=== PATIENT | female | born 1950 | race Caucasian/White ===

== ENCOUNTER 2016-11-05 16:22 | Emergency (ER) | payer MEDICARE, MEDICAID ==
[2016-11-05 16:37] VITALS: BP 148/74
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
== END 2016-11-05 17:13 | disposition home or self-care (01) ==
LOC: LB.ED 16:22
DX: R68.84 Jaw pain (principal); R20.2 Paresthesia of skin; I10 Essential (primary) hypertension; E28.2 Polycystic ovarian syndrome; F17.210 Nicotine dependence, cigarettes, uncomplicated; Z88.5 Allergy status to narcotic agent; Z79.899 Other long term (current) drug therapy
CPT/HCPCS: 36415; 80053; 84484; 85025; 93005; 99283-25; 99284

== ENCOUNTER 2017-08-10 16:43 | Emergency (ER) | payer MEDICARE, MEDICAID ==
[2017-08-10] MEDS: HYDROmorphone 4 MG/ML Syringe ONE (17:09)
[2017-08-10] MEDS: HYDROmorphone 2 MG/ML Syringe SUBCUT ONE (17:09)
[2017-08-10] MEDS ORDERED: Acetaminophen/HYDROcodone 325-5 MG Tab ONE (17:55)
[2017-08-10 20:58] VITALS: BP 156/83
--- NOTE | 2017-08-11 02:18 | ER ---
DATE OF SERVICE: 08/10/2017 HISTORY OF PRESENT ILLNESS: A 67-year-old lady here with complaints of headache that started yesterday. She states it was severe yesterday. She took a couple of Aleve tablets. She felt at one point like her heart was beating faster than normal. It got better overnight, now this morning it was better again, but this afternoon it became severe again. She denies any problems with nausea or visual changes. She is not sensitive to loud noises or bright lights. The patient denies any recent falls or injuries. She denies any history of headaches. She states it is more painful across the forehead area. She currently rates her pain at 7/10. She states that occasionally she is a little short of breath and maybe a little dizzy. The patient states she otherwise has been fairly healthy. MEDICATIONS: Current medications include Synthroid, Tenormin, Zoloft, and simvastatin. OBJECTIVE: GENERAL APPEARANCE: The patient is awake and alert. She is in no obvious distress. VITAL SIGNS: Reviewed. They are as follows, she is afebrile. Blood pressure 156/83, pulse 63, O2 sats are 96% on room air. HEENT: Eyes, pupils equal, round, and reactive to light. EOMs are intact without strabismus, nystagmus, or ptosis. Head is normocephalic. Ears, TMs are normal. Nares are patent. Oral mucous membranes are moist. Posterior pharynx shows mild drainage. NECK: Supple with full and unguarded range of motion. LUNGS: Clear. CARDIAC: Heart sounds distinct without murmurs. ABDOMEN: Soft, nontender. Bowel sounds are present. SKIN: Warm and dry. LABS AND X RAY: EKG shows normal sinus rhythm. Labs include a CBC, CMP, and TSH. They are all unremarkable. The patient was given Dilaudid 1 mg subcu and this resolved her headache completely. Head CT was done showing the ventricles are dilated more than expected for this age group. I did talk with the radiologist. There is some concern for hydrocephalus including normal- pressure hydrocephalus. Radiology is requesting an MRI for further evaluation. I did relay this information to the patient who is agreeable with pursuing the next step which is the MRI. DIAGNOSIS: Headache with abnormal findings on her head CT. TREATMENT PLAN: The patient will go home. She is to rest. She is not to work for the next couple of days. We need schedule an MRI as soon as we can for further evaluation, and I will give her a few hydrocodone tablets to take as needed for ongoing headache issues. The patient agrees with the treatment plan and has no further questions. CRS/MODL /[id number] MTDD
--- NOTE | 2017-08-11 08:21 | CT ---
DATE OF SERVICE: 08/10/17 CLINICAL DATA: Acute headache UNENHANCED BRAIN CT: Multi slice axial acquisition was performed. No priors. There is moderate lateral, 3rd, and 4th ventriculomegaly. Normal pressure hydrocephalus should be considered. No masses or mass effect. No intracranial hemorrhage. No evidence of acute or subacute infarct. No osseous abnormalities. IMPRESSION: 1. Abnormal exam. 2. The patient's physician was notified of the findings. [id number] MTDD
--- NOTE | 2017-08-11 10:28 | ER ---
DATE OF SERVICE: 08/10/2017 HISTORY OF PRESENT ILLNESS: A 67-year-old lady here with complaints of a headache that started yesterday. She states her headache has been severe at times and on a couple of occasions, feels like her heartbeat is fast. The forehead is the area where she is having her headache symptoms. She states that it was better this morning, but it flared up again later on today. The patient denies any recent falls or injuries. She states that she does feel a little short of breath and dizzy when the headache is bad. She has not been sick recently. She has not been running a fever. OBJECTIVE: GENERAL APPEARANCE: The patient is awake and alert. No obvious distress. She currently rates her pain at about 7/10. VITAL SIGNS: Reviewed. Blood pressure 156/83, pulse 63, O2 sats are 96%. She is afebrile. HEENT: Eyes, pupils equal, round , and reactive to light. EOMs are intact. Head is normocephalic. Ears, TMs are normal. Nares are patent. Oral mucous membranes moist. Posterior pharynx shows mild drainage. NECK: Supple. LUNGS: Clear without rales, wheezes, or rhonchi. CARDIAC: Heart sounds distinct. S1, S2 present. No murmurs noted. ABDOMEN: Soft and nontender. SKIN: Warm and dry. LAB AND X-RAY: A head CT is obtained which does show dilated ventricles that are considered to be larger than expected for this age group. The radiologist did call me and we talked about the concern of hydrocephalus including normal-pressure hydrocephalus. They are recommending an MRI for further evaluation. Labs done tonight include a CBC, CMP, and TSH. They are all normal. DIAGNOSIS: Headache with some abnormal findings on the head CT involving the ventricles. TREATMENT PLAN: The patient will be scheduled for an MRI of the brain within the next day or 2 for further evaluation. She is to go home and rest, take it easy, and be off work. I gave her slip to be off work for a couple of days. The patient agrees to the treatment plan and has no further questions. CRS/MODL /[id number] ROCAEL
== END 2017-08-10 19:39 | disposition home or self-care (01) ==
LOC: LB.ED 16:43
DX: R51 Headache (principal); R93.0 Abnormal findings on diagnostic imaging of skull and head, not elsewhere classified
CPT/HCPCS: 36415; 70450; 80053; 84443; 85025; 93005; 96372; 99284-25; A9270-GY; J1170

== ENCOUNTER 2024-02-03 17:11 | Emergency (ER) | payer MEDICARE ==
[2024-02-03] MEDS ORDERED: Sodium Chloride 0.9% 10 ML Syringe FLUSH PRN (17:18)
[2024-02-03] MEDS: Ondansetron 4 MG/2 ML SDV IVPUSH ONE (17:39)
[2024-02-03] MEDS: Sodium Chloride 0.9% 1,000 ML IV SCH (17:44)
[2024-02-03 18:05] LABS: BASOPHILS ABSOLUTE AUTO 0.05 K/uL (0.02-0.10); BASOPHILS PERCENT AUTO 0.5 % (0.0-0.5); EOSINOPHILS ABSOLUTE AUTO 0.16 K/uL (0.04-0.40); EOSINOPHILS PERCENT AUTO 1.7 % (1.0-5.0); HEMATOCRIT 41.4 % (37.0-47.0); HEMOGLOBIN 14.1 g/dL (11.5-16.5); LYMPHOCYTES ABSOLUTE AUTO 1.51 K/uL (1.50-4.00); LYMPHOCYTES PERCENT AUTO 16.1 % (20.0-40.0); MEAN CORPUSCULAR HEMOGLOBIN 31.8 pg (27.0-32.0); MEAN CORPUSCULAR HGB CONC 34.1 g/dL (31.0-35.0); MEAN CORPUSCULAR VOLUME 94 fL (76-96); MEAN PLATELET VOLUME 11.5 fL (6.0-10.0); MONOCYTES ABSOLUTE AUTO 1.32 K/uL (0.20-0.80); MONOCYTES PERCENT AUTO 14.1 % (3.0-10.0); NEUTROPHILS ABSOLUTE AUTO 6.31 K/uL (2.00-7.50); NEUTROPHILS PERCENT AUTO 67.6 % (45.0-70.0); PLATELET COUNT,PLT 281 K/uL (150-500); RED BLOOD CELL COUNT 4.43 M/uL (3.80-5.80); RED CELL DISTRIBUTION WIDTH 13.4 % (11.0-16.0); WHITE BLOOD CELL COUNT,WBC 9.4 K/uL (4.0-11.0)
[2024-02-03 18:26] LABS: A/G RATIO 0.8 (0.8-2.0); ALBUMIN 3.2 g/dL (3.4-5.0); ANION GAP 16.7 mmol/L (5.0-15.0); BILIRUBIN TOTAL 1.3 mg/dL (0.0-1.0); BUN/CREATININE RATIO 15.2 (6-25); CALCIUM 8.5 mg/dL (8.5-10.1); CREATININE 1.05 mg/dL (0.55-1.02); EST CRCL DRUG DOSING (CG) 51.36 mL/min
[2024-02-03 18:27] LABS: LACTIC ACID 1.8 mmol/L (0.4-2.0)
[2024-02-03 18:30] LABS: POTASSIUM,K 2.7 mmol/L (3.5-5.1)
[2024-02-03] MEDS: NS + KCl 20mEq/L 1,000 ML IV SCH (18:40)
[2024-02-03 18:43] LABS: INFLUENZA A NAA NEGATIVE (NEGATIVE); INFLUENZA B NAA NEGATIVE (NEGATIVE); RESPIRATORY SYNCYTIAL VIR NAA NEGATIVE (NEGATIVE)
[2024-02-03 18:52] LABS: CORONAVIRUS COVID-19 NAA POSITIVE (NEGATIVE)
[2024-02-03] MEDS ORDERED: Azithromycin 250 MG Tab ONE (21:00)
[2024-02-04 00:23] VITALS: BP 130/75; PULSE 95
== END 2024-02-03 21:30 | disposition home or self-care (01) ==
LOC: LB.ED 17:11
DX: U07.1 COVID-19 (principal); J12.82 Pneumonia due to coronavirus disease 2019; I10 Essential (primary) hypertension; E78.00 Pure hypercholesterolemia, unspecified; E03.9 Hypothyroidism, unspecified; Z90.49 Acquired absence of other specified parts of digestive tract; Z87.891 Personal history of nicotine dependence; Z79.899 Other long term (current) drug therapy; Z79.890 Hormone replacement therapy; Z88.6 Allergy status to analgesic agent; Z88.5 Allergy status to narcotic agent
CPT/HCPCS: 0241U; 36415; 71046; 80053; 83605; 85025; 87040; 96361; 96365; 96366; 96375; 99284; A9270; J2405; J3480; J7030; 83690